=== PATIENT | female | born 2000 | race Caucasian/White ===

== ENCOUNTER 2022-09-06 21:45 | Emergency (ER) | payer MEDICAID, SELFPAY ==
--- NOTE | ~2022-09-06 | XR_ITS ---
EXAMINATION: XR WRIST, RIGHT XR HAND, RIGHT CLINICAL INFORMATION: Punched wall with pain and hand/wrist COMPARISON: None available. TECHNIQUE: 4 views including the right hand and wrist obtained FINDINGS: RIGHT WRIST: The bones and soft tissues are normal. No fracture. Alignment is anatomic. Joint spaces are maintained. No erosions or soft tissue calcifications. RIGHT HAND: There is a comminuted slightly impacted fracture of the base of the fifth metacarpal extending to the carpometacarpal joint space. Minimal dorsal displacement of the distal fragment without significant angulation. No other acute bony abnormality. XR/XR hand wrist RT IMPRESSION: Comminuted slightly impacted fracture of the base of the fifth metacarpal extending to the carpometacarpal joint space.
[2022-09-06 21:52] VITALS: BP 136/82; PULSE 85; RESP 18; TEMP 36.4; O2SAT 98; BMI 31.8
--- NOTE | 2022-09-07 00:08 | ED_ITS ---
HPI - Extremity Problem General Chief complaint: Extremity Injury, Upper Stated complaint: broken right hand? Time Seen by Provider: 09/06/22 23:42 Source: patient Mode of arrival: ambulatory Limitations: no limitations History of Present Illness HPI Narrative: Patient is a 22-year-old female who presents emergency department for evaluation of right hand injury. She is right-hand dominant. Prior to arrival she had punched a wall and is having pain to the hand along the 5th metacarpal. Pain is made worse with active range of motion to the fingers and wrist. Denies any numbness or tingling. Denies any prior injury to this hand. Related Data Allergies Allergy/AdvReac Type Severity Reaction Status Date / Time No Known Allergies Allergy Verified 09/06/22 23:45 Review of Systems Review of Systems: Yes all other systems are reviewed and are negative [facility] Past Medical History Attestation statement: The following information was validated with the patient. Source: old records reviewed Social History Social History Advance Directives: No Advance Directives Information Provided: Yes Physical Exam Vital Signs: Vital Signs: Last Vital Signs Temp 97.6 F 09/06/22 21:52 Pulse 85 09/06/22 21:52 Resp 18 09/06/22 21:52 BP 136/82 09/06/22 21:52 Pulse Ox 98 09/06/22 21:52 O2 Del Method Room Air 09/06/22 21:52 BMI result Body Mass Index 31.8 Appearance: Alert.?Oriented to person, place and time. No acute distress.?Normal affect. Neck: Normal inspection.? Neck supple.?? CVS: Heart sounds normal. Normal heart rate and rhythm.? Pulses normal.?? Respiratory: No respiratory distress.? Lung sounds clear to auscultation bilaterally?? Skin: Skin warm and dry.? Normal skin color Extremities: Localized swelling at the base of the 5th metacarpal without obvious deformity. Neurovascularly intact distally Neuro: Moves all extremities spontaneously. Sensation intact bilaterally. No focal neuro deficits. Ambulates with normal steady gait. Medical Decision Making Medical Decision Making MDM Narrative: Patient is a 22-year-old fxpor-[id number]-[id number] female presenting to emergency department for evaluation of traumatic right hand pain. Reviewed XR imaging obtained from initial triage which is consistent with a comminuted fracture at the base of the 5th metacarpal consistent with physical examination. Extremities neurovascularly intact distally. She was placed in an ulnar gutter splint, and remained neurovascularly intact distally after application. We reviewed precautions with splint, acetaminophen/ibuprofen for pain, rest, ice, elevation, outpatient follow-up with Orthopedics. Reviewed worrisome signs and symptoms that would warrant re-evaluation in the emergency department. All questions answered. Stable for discharge. Differential Diagnosis Differential Diagnoses: The differential diagnosis associated with the present ation includes (Fracture, dislocation, contusion) Independent Interpretation I performed an independent interpretation of an: Plain X-Ray (I have personally interpreted XR imaging and agree with radiologist impression) Radiology Impression Discussion of test interpretation with radiology: I have reviewed the radiologist's reading. Radiologist Impression: XR/XR hand wrist RT IMPRESSION: Comminuted slightly impacted fracture of the base of the fifth metacarpal extending to the carpometacarpal joint space. Prescription Management I considered prescription management with: Pain Medication Discharge Plan Discharge Clinical Impression: Closed fracture of fifth metacarpal bone Qualifiers: Encounter type: initial encounter Metacarpal location: base Laterality: right Patient Disposition: Home, Self-Care Instructions: Hand Fracture (ED) Additional Instructions: You have been placed in a splint, this cannot get wet. It must remain in place at all times until you follow-up with the phone specialist. Please call their office first thing tomorrow morning to arrange for a follow-up visit. You can take ibuprofen 200 mg, 3 tablets (600mg) every 6-8 hours as needed for pain, in addition to Tylenol 500 mg, 2 tablets (1,000mg) every 4-6 hours as needed for pain, but not to exceed 3 doses daily (3,000mg).? Please return back to emergency department any new or worsening symptoms or concerns. Referrals: Donna Alonzo MD [Physician] - Stand Alone Forms: Work/School Release Interventions: ED Discharge Assessment Last Done: 09/07/22 00:37 Discharge Date/Time: 09/07/22 00:37
--- NOTE | 2022-09-07 00:18 | MHC.EDTECH ---
This tech applied a ulnar gutter splint to RT arm,per Javon POLITICAL RESEARCH SCIENTIST. Patient tolerated procedure well. and provider checked for placement. RN aware
== END 2022-09-07 00:37 | disposition home or self-care (01) ==
PROVIDERS: Emergency Provider Internal Medicine
DX: S62.316A Displaced fracture of base of fifth metacarpal bone, right hand, initial encounter for closed fracture (principal); W22.09XA Striking against other stationary object, initial encounter; Y93.89 Activity, other specified; Y92.9 Unspecified place or not applicable; Y99.9 Unspecified external cause status
CPT/HCPCS: 29125; 73110; 73130; 99282; 99284

== ENCOUNTER 2022-09-15 08:29 | Outpatient (REF) | payer MEDICAID, SELFPAY ==
--- NOTE | ~2022-09-15 | XR_ITS ---
EXAMINATION: XR HAND, RIGHT CLINICAL INFORMATION: Pain in right hand. Radiopaque marker placed by technologist to indicate area of concern indicated by patient at ulnar aspect of 5th metacarpal phalangeal joint. COMPARISON: None available. TECHNIQUE: 4 views of the right hand. FINDINGS: Radiopaque marker placed by technologist to indicate area of concern indicated by patient at ulnar aspect of 5th metacarpal phalangeal joint. There is a displaced, comminuted fracture at the base of the 5th metacarpal which extends to the proximal intra-articular surface. Soft tissue swelling is present. Moderate degenerative changes 1st carpometacarpal, 1st metacarpophalangeal and 5th proximal interphalangeal with joint space narrowing and hypertrophic change. XR/XR hand RT min 3V IMPRESSION: 1. Comminuted, intra-articular, mildly displaced fracture at the base of the 5th metacarpal. 2. This study was presented today 09/20/2022 at 5:55 AM for interpretation. PSA staff will provide results to referring provider at this time. Please communicate results to referring clinician and document this communication. Thank you.
== END 2022-09-15 08:30 | disposition home or self-care (01) ==
LOC: HO.HOSX 08:29
PROVIDERS: Visit Provider Physician Assistant
DX: S62.306A Unspecified fracture of fifth metacarpal bone, right hand, initial encounter for closed fracture (principal)
CPT/HCPCS: 73130; 99202

== ENCOUNTER 2022-09-15 08:29 | Outpatient (AMB) | payer MEDICAID, SELFPAY ==
[2022-09-15 08:32] VITALS: BMI 31.8
--- NOTE | 2022-09-15 08:32 | A.OFFVIS_ITS ---
Intake Vital Signs 09/15/22 08:32 Height 5 ft 4 in Weight 185 lb BMI 31.8 Handedness Right Intake Visit Reasons: FC= Closed fracture of RT fifth metacarpal bone Intake Note: Mitchel is a 22 year old female who presents today for a fracture care appointment for her right 5th metacarpal, DOI 09/06/22. Patient reports she had punched a wall and is having pain to the hand along the 5th metacarpal. Having numbness on the dorsal and volar aspect of the hands. Allergies No Known Allergies Allergy (Verified 09/06/22 23:45) HPI FC= Closed fracture of RT fifth metacarpal bone HPI Details 22-year-old female who presents to the office today for right 5th metacarpal injury s/p punching a wall, 09/06/22. She states she has pain in her 5th metacarpal which radiates to her right hand. She also c/o numbness in the dorsal and volar aspect of her hand. She was seen in the ED, xrays obtained and she was referred to our office for ortho eval. PENDING SALE TO [facility] Social History (Updated 09/15/22 @ 08:39 by Bhargav Navarro) Alcohol intake: current Patient Tobacco Use Status: Never used Tobacco Current occupational status: student Current occupation: right hand dominant Review of Systems Const All systems reviewed & are unremarkable except as noted in HPI and below Physical Exam Vital Signs: BMI result Body Mass Index 31.8 Const General: cooperative, healthy appearing, comfortable, no acute distress, well developed and alert Orientation/consciousness: patient oriented x3 HEENT Head: Yes normal to inspection, Yes normocephalic and Yes atraumatic Eyes General: appearance normal, both eyes and all related structures Neck Neck: Yes normal visual inspection and Yes no lymphadenopathy Resp Effort & Inspection: normal respiratory effort and able to speak in complete sentences Cardio Rate: regular rate Peripheral pulses: Peripheral pulses 2+ throughout GI Inspection: Yes normal to inspection Palpation (GI): Soft to palpation Skin General skin exam: no rashes or lesions noted Neuro General: patient oriented x3 Extrem Other: Right hand: Normal to inspection. There is some tenderness over the neck of the 5th metacarpal. There is no scissoring or angulation of the small finger. She can fully extend and bring his hand to a closed fist. NVI Psych Appearance: grossly normal Mental Status: mental status grossly normal Office Procedures Casting/Splints [id number] Splint Application Procedure code (CPT) selection complete Fracture Care Fracture Billing Code: Fracture Billing Code Results Reviewed Results Reviewed: X-rays of the right hand obtained in the office today show comminuted slightly impacted fracture at the base of 5th metacarpal with intraarticular extension. Assessment & Plan Assessment & Plan (1) Fracture of fifth metacarpal bone of right hand: Code(s): S62.306A - Unspecified fracture of fifth metacarpal bone, right hand, initial encounter for closed fracture Plan I discussed the case with Dr. Alonzo. I discussed the extent of the injury to the patient and options available. Given the extent of the fracture pattern and high risk of further displacement, it is recommended that we surgically fix this to help with stability and restoring anatomy. I explained to the patient the procedure in detail along with the risks, benefits and alternatives. Risks including but not limited to infection, wound breakdown, stiffness, ongoing pain, nonunion or malunion, and possible complications with hardware. She does understand all this and would like to proceed with closed versus open reduction internal fixation of the right 5th metacarp[address] with Dr. Alonzo. She will be booked accordingly. Orders: Orders XR hand RT min 3V Today M79.641 - Pain in right hand Patient Instructions: Scribed for Monroe Naqvi PA-C, by Bertin June medical transcriptionist, on 09/15/2022 at 8:30 AM EST. IMonroe PA-C, have personally reviewed and agree with the information entered by the scribe. Coding Level of Care Code New Pt Level 4 (48564) Diagnoses Fracture of fifth metacarpal bone of right hand S62.306A CPT Codes Splint - CPT: 50855-[id number] Splint Application ([id number]) Fracture Care - Fracture Billing Code: Fracture Billing Code ([id number])
== END 2022-09-15 09:33 | disposition home or self-care (01) ==
PROVIDERS: Visit Provider Physician Assistant
DX: S62.316A Displaced fracture of base of fifth metacarpal bone, right hand, initial encounter for closed fracture (principal)
CPT/HCPCS: 99204

== ENCOUNTER 2022-09-16 07:52 | Day surgery (SDC) | payer MEDICAID, SELFPAY ==
--- NOTE | 2022-09-15 12:18 | HO.ANESPROP2 ---
HPI - Anesthesia Eval Consult details Narrative: 22yo F for Right fifth metacarpal Closed Reduction Perc Pinning vs ORIF PMFSH Active Problems Active Problems: All Active Problems (Updated 09/15/22 @ 09:35 by Bertin June) Fracture of fifth metacarpal bone of right hand (Acute) Social History Social History (Updated 09/15/22 @ 08:39 by Bhargav Navarro) Alcohol intake: current Patient Tobacco Use Status: Never used Tobacco Current occupational status: student Current occupation: right hand dominant Meds Allergies Allergy/AdvReac Type Severity Reaction Status Date / Time No Known Allergies Allergy Verified 09/06/22 23:45 Exam Exam Date and Time: September 15, 2022 1218 Assessment and Plan Assessment Anesthesia Assessment: Chart Reviewed
--- NOTE | ~2022-09-16 | FL_ITS ---
EXAMINATION: XR FLUOROSCOPY WITH IMAGES CLINICAL INFORMATION: Fifth metacarpal CRPP versus ORIF-right. COMPARISON: None available. TECHNIQUE: Fluoroscopy Supervised By: Dr. Donna Alonzo. Fluoroscopy Time: 18.24 seconds. Cumulative Dose: 0.5076 mGy. DAP: 0.0307 Gycm2. Images: 5. FINDINGS: There are 5 digital images obtained revealing a solitary pin traversing the entire length of fifth metacarpal stabilizing the proximal fifth metacarpal fracture in alignment. FL/FL guidance in OR IMPRESSION: Intraoperative fluoroscopy was provided to referring physician. There is solitary pin stabilizing comminuted fracture proximal fifth metacarpal.
[2022-09-16 08:47] VITALS: BP 114/73; PULSE 71; RESP 15; TEMP 36.8; O2SAT 99; BMI 32.3
[2022-09-16] MEDS: Lactated Ringers 1,000 ML 100 ML IVCONT (08:52)
--- NOTE | 2022-09-16 09:47 | P.CONAN_ITS ---
[facility] Active Problems Active Problems: All Active Problems (Updated 09/16/22 @ 08:44 by Carlie Valdovinos RN) Fracture of fifth metacarpal bone of right hand (Acute) Past Medical History Medical History Anxiety Borderline personality disorder Depression History of benign breast tumor Functional capacity: independent ambulation Family History Family history of problems with anesthesia: No Social History Social History Alcohol intake: current Patient Tobacco Use Status: Never used Tobacco Current occupational status: student Current occupation: right hand dominant Meds Allergies Allergy/AdvReac Type Severity Reaction Status Date / Time No Known Allergies Allergy Verified 09/16/22 08:44 Active Medications: Current Medications Lactated Ringer's (Lr) 1,000 mls @ 100 mls/hr IVCONT .Q10H BRNENA Last Admin: 09/16/22 08:52 Dose: 100 mls/hr Exam Exam Date and Time: September 16, 2022 0947 Height,Weight and Vital Signs: Height 5 ft 3.5 in Weight 83.915 kg Last Vital Signs Temp 98.2 F 09/16/22 08:47 Pulse 71 09/16/22 08:47 Resp 15 09/16/22 08:47 BP 114/73 09/16/22 08:47 Pulse Ox 99 09/16/22 08:47 O2 Del Method Room Air 09/16/22 08:47 Airway Mallampati Class: II TM Dist: >3cm Neck ROM: Full Heart: RRR Lungs: CTA Assessment and Plan Assessment Anesthesia Assessment: Anesthesia Plan Discussed Final Anesthetic Review Family History of Problems with Anesthesia: No ASA Class: II Final Preanesthetic Review: Meds/Allgs Chart Reviewed, Consent Obtained/Reviewed and Anes Risks/Benef Reviewed Patient Risk: Low (j) Procedure Risk: Low Anesthetic Plan Anesthetic Plan: GA Disposition: Standard PACU
[2022-09-16 09:52] LABS: UPreg QC Valid YES; Urine Pregnancy NEGATIVE (NEGATIVE)
--- NOTE | 2022-09-16 09:59 | MHC.SHP ---
Pre-Procedural Eval Section A Date of Service: 09/16/22 The patient is an INPATIENT: No Changes since office visit: No Cold of Flu in the past 2 weeks, No New Medical Problems, No Changes in Medication and No Patient answered all questions The History & Physical has been completed within 30 days and I have reviewed it.: Yes Section B Chief Complaint: Unspecified fracture of fifth metacarpal bone, rig Allergies: Allergies Allergy/AdvReac Type Severity Reaction Status Date / Time No Known Allergies Allergy Verified 09/16/22 08:44 Plan I have reviewed the history and physical and performed a pertinent physical examination on my patient. No changes have occurred unless specified. Time Spent With Patient Time: Total time managing care of this patient today ____ minutes.
--- NOTE | 2022-09-16 10:00 | W.PM.OPN ---
Operative Note Operative Note Date of Service: 09/16/22 Narrative: Operative Note Narrative: Preop diagnosis: 1. Right 5th Metacarpal intra-articular base fracture Postop diagnosis: Same Procedure: 1. right 5th Metacarpal base fracture closed reduction percutaneous pinning 2. Ulnar nerve block Surgeon: Donna Alonzo MD Anesthesia: General Anesthesia Findings: Metacarpal fracture Implants: 0.054 K-wires times 1 Tourniquet time: None EBL: Minimal Specimen: None Drains: None Complications: None Disposition: Brought to the recovery room in stable condition Plan: Follow-up in 10-14 days for a wound check, postop radiographs and for placement in a short-arm cast or splint Anticipate K-wire removal in 4 weeks based on interval bony healing Educate the patient that full fracture healing anticipated in approximately 8-12 weeks. Indications: The patient is 21 would years old with a right intra-articular 5th metacarpal base fracture sustained after punching a wall . The risks and benefits of operative treatment, including but not limited to risk of damage to blood vessels, nerves, tendons, infection, recurrence, delayed or nonunion of fracture, persistent pain or numbness, incomplete resolution of preoperative symptoms, or need for further surgery were discussed with the patient and they wished to proceed with surgery. Procedure: Once consent was obtained patient was brought back to the operating suite and placed in the operating table in a supine position. . Perioperative antibiotics and general anesthesia was administered by the anesthesia team. A tourniquet was applied to the proximal aspect of the right upper extremity and the limb was prepped and draped in a standard surgical fashion. Tourniquet was not inflated during the case. The FluoroScan was used during the case to assist with our fracture reduction and placement of all implants. A closed reduction was performed on the patient's right 5th metacarpal base fracture. I placed a single 0.062 K-wire retrograde through the head of the right 5th metacarpal extending proximally across the fracture site , across the 5th CMC joint and into the hamate. Fracture alignment was assessed for both angular and rotational malalignment. Once satisfied with our fracture reduction and implant placement, the K-wire Was bent and cut short and pin cap applied. Final fluoroscopic images were then obtained. The wounds were copiously irrigated with normal saline. An ulnar nerve block was then performed by infiltrating about the ulnar nerve at the wrist with some 1% lidocaine with epinephrine for postop pain control. A Sterile dressing and short volar splint was applied. The patient appears to have tolerated the procedure well and with no complications. All digits were well vascularized at the conclusion of the case.
[2022-09-16 11:18] VITALS: BP 123/72; PULSE 89; RESP 16; TEMP 36.2; O2SAT 95
[2022-09-16 11:23] VITALS: BP 126/66; PULSE 71; RESP 18; O2SAT 96
[2022-09-16 11:28] VITALS: BP 129/63; PULSE 73; RESP 20; O2SAT 98
[2022-09-16] MEDS: Acetaminophen 1,000 MG/100 ML PIGGYBACK 400 MG IV (11:31)
[2022-09-16 11:33] VITALS: BP 130/63; PULSE 95; RESP 20; TEMP 36.1; O2SAT 99
[2022-09-16 11:47] VITALS: BP 133/67; PULSE 81; RESP 20; O2SAT 99
== END 2022-09-16 12:32 | disposition home or self-care (01) ==
PROVIDERS: Nurse Practitioner; Visit Provider Orthopaedic Surgery
PROC: (CPT 26615; principal; 2022-09-16 09:30)
DX: S62.316A Displaced fracture of base of fifth metacarpal bone, right hand, initial encounter for closed fracture (principal); W22.09XA Striking against other stationary object, initial encounter; Y93.9 Activity, unspecified; Y92.9 Unspecified place or not applicable; Y99.9 Unspecified external cause status
CPT/HCPCS: 26608; 81025; J0131; J0690; J1100; J2250; J2405; J2795; J3010

== ENCOUNTER → 2022-09-16 07:52 | Outpatient (BNV) | payer MEDICAID, SELFPAY | PROVIDERS: Visit Provider Orthopaedic Surgery | DX: S62.316A Displaced fracture of base of fifth metacarpal bone, right hand, initial encounter for closed fracture (principal) | CPT/HCPCS: 26608 ==

== ENCOUNTER 2022-09-29 07:36 | Outpatient (REF) | payer MEDICAID, SELFPAY ==
--- NOTE | ~2022-09-29 | XR_ITS ---
EXAMINATION: XR HAND, RIGHT CLINICAL INFORMATION: Pain in right hand COMPARISON: 09/15/2022 TECHNIQUE: PA, lateral, and oblique views of the right hand. FINDINGS: A single percutaneous wire is identified across the fifth metacarpal bone extending into the hamate with immobilization of the intra-articular fracture at the base of the fifth metacarpal bone in anatomic alignment. The fracture remains visible. Early signs of healing at the fracture margin noted. The bones of the hand are otherwise normal without additional findings seen. XR/XR hand RT min 3V IMPRESSION: Fifth metacarpal fracture remains visible with early signs of healing. Anatomic alignment status post K wire placement.
== END 2022-09-29 07:37 | disposition home or self-care (01) ==
LOC: HO.HOSX 07:36
PROVIDERS: Visit Provider Orthopaedic Surgery
DX: S62.306D Unspecified fracture of fifth metacarpal bone, right hand, subsequent encounter for fracture with routine healing (principal)
CPT/HCPCS: 73130

== ENCOUNTER 2022-09-29 13:35 | Outpatient (AMB) | payer MEDICAID, SELFPAY ==
--- NOTE | 2022-09-29 14:25 | A.OFFVIS_ITS ---
Intake Intake Visit Reasons: PO CRPP vs. ORIF RT 5th 09/16/22AR Intake Note: Mitchel 22 yr old female presents today P/O right 5th digit ORIF from DOS 09/16/22. States she has no pain, numbness or tingling. Dressing removed in office and xrays updated as well. Allergies No Known Allergies Allergy (Verified 09/29/22 14:27) HPI PO CRPP vs. ORIF RT 5th 09/16/22AR HPI Details Mitchel is a 22 year old right hand dominant woman who presents S/P right 5th Metacarpal intra-articular base fracture CRPP 09/16/22. She says she is doing well and denies any pain. She attends a [employer] for schooling, and is off on medical leave. [facility] Medical History Anxiety Borderline personality disorder Depression History of benign breast tumor Social History Alcohol intake: current Patient Tobacco Use Status: Never used Tobacco Current occupational status: student Current occupation: right hand dominant Review of Systems Const All systems reviewed & are unremarkable except as noted in HPI and below Physical Exam Const General: no acute distress and alert Orientation/consciousness: patient oriented x3 Neuro General: patient oriented x3 Extrem Other: The patient was alert oriented and in no acute distress The pin-site is clean and dry with no erythema drainage or evidence of in fection. Sutures removed and Steri-Strips applied Mild tenderness at the fracture site Swelling & ecchymosis has mostly resolved Sensation is intact Cap refill is brisk Radiographs: 3 views of the right hand, with attention to the small finger, were taken and viewed by me today in clinic. They show a 5th metacarpal base fracture with satisfactory fracture alignment and position of single K-wire. Psych Appearance: grossly normal Affect: normal affect Attitude: cooperative Assessment & Plan Assessment & Plan (1) Fracture of fifth metacarpal bone of right hand: Code(s): S62.306A - Unspecified fracture of fifth metacarpal bone, right hand, initial encounter for closed fracture Plan Assessment & Plan: 1. Right 5th metacarpal base fracture, S/P CRPP DOS: 09/16/22 The patient appears to be doing well post-operatively I educated her about the post-operative course I discussed activity modifications, she is to lift nothing heavier than a cellphone for the next 4 weeks She is to limit or avoid any heavy impact activities or activities prone to falling for the next 4 weeks She should avoid any underwater activities at this time She was placed in a finger spica cast for the next 2 weeks She was given a note for school/[employer] to remain out for the next 3 weeks. 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 I anticipate she can return to [employer] for culinary school ~1 week after K- wire removal, she will have a 2 lb weight limit for ~2 weeks after her K-wire removal She will follow up in 2 weeks with a PA, with X-rays 3V R hand, attn SF OOP Anticipate removal of her K-wire at her next appointment Scribed for Donna Alonzo MD by Jaxon Lindsey, medical imaging technologist, on 09/29/22 at 2:55 PM, EST. Orders: Orders XR hand RT min 3V Today M79.641 - Pain in right hand Coding Level of Care Code Global (07268) Diagnoses Fracture of fifth metacarpal bone of right hand S62.306A
== END 2022-09-29 15:32 | disposition home or self-care (01) ==
PROVIDERS: Visit Provider Orthopaedic Surgery
DX: S62.306A Unspecified fracture of fifth metacarpal bone, right hand, initial encounter for closed fracture (principal)
CPT/HCPCS: 99024

== ENCOUNTER 2022-10-11 12:37 | Outpatient (REF) | payer MEDICAID, SELFPAY ==
--- NOTE | ~2022-10-11 | XR_ITS ---
EXAMINATION: XR HAND, RIGHT CLINICAL INFORMATION: Pain. COMPARISON: X-ray right hand 09/29/2022. TECHNIQUE: PA, lateral, and oblique views of the right hand. FINDINGS: Redemonstration of a single percutaneous wire across the fifth metacarpal bone extending into the hamate. No evidence of hardware fracture or complication. The fracture line at the base of the fifth metatarsal is less distinct suggesting interval osseous bridging. No significant callus formation. New punctate radiodensities in the soft tissues adjacent to the proximal aspect of the wire at the level of the metacarpophalangeal joint. XR/XR hand RT min 3V IMPRESSION: 1. Healing fracture at the base of the fifth metatarsal bone. 2. New punctate radiodensities in the soft tissues adjacent to the proximal aspect of the wire at the level of the metacarpophalangeal joint that could represent foreign bodies. Correlate with physical examination. The report will be called to the ordering clinician by a [facility] Physician Special Day Class Teacher.
== END 2022-10-11 12:38 | disposition home or self-care (01) ==
LOC: HO.HOSX 12:37
PROVIDERS: Visit Provider Physician Assistant
DX: S62.306D Unspecified fracture of fifth metacarpal bone, right hand, subsequent encounter for fracture with routine healing (principal)
CPT/HCPCS: 73130

== ENCOUNTER 2022-10-11 13:56 | Outpatient (AMB) | payer MEDICAID, SELFPAY ==
--- NOTE | 2022-10-11 14:07 | MHC.OFFVIS ---
Intake Intake Visit Reasons: ORIF RT 5th 09/16/22AR Intake Note: Daysialee 22 yr old female presents today P/O right 5th digit ORIF from [facility] 09/16/22. Patient reports she is doing well, states no pain, discomfort, numbness or tingling. Allergies No Known Allergies Allergy (Verified 10/11/22 14:38) HPI ORIF RT 5th 09/16/22AR HPI Details 22-year-old female who returns to the office today for post-op right 5th digit ORIF, 09/16/[address] Alonzo. She states she has no pain, discomfort, numbness or tingling in her finger and is doing well overall. She has no concerns today. [facility] Medical History Anxiety Borderline personality disorder Depression History of benign breast tumor Social History Alcohol intake: current Patient Tobacco Use Status: Never used Tobacco Current occupational status: student Current occupation: right hand dominant Review of Systems Const All systems reviewed & are unremarkable except as noted in HPI and below Physical Exam Extrem Other: Right hand: Normal to inspection. Skin is intact. sensation intact. Results Reviewed Results Reviewed: X-rays of the right hand obtained in the office today show fracture at the base of 5th metacarpal with intact pinn Assessment & Plan Assessment & Plan (1) Fracture of fifth metacarpal bone of right hand: Code(s): S62.306A - Unspecified fracture of fifth metacarpal bone, right hand, initial encounter for closed fracture Plan Pin was removed in office today and she was placed in an off the shelf thermal molded wrist splint to be worn at all times like a cast-she can remove for hygiene only. she is to lift nothing heavier than a cellphone for the next 2 weeks She is to limit or avoid any heavy impact activities or activities prone to falling for the next 2 weeks She should avoid any underwater activities at this time She was placed in a velcro wrist splint for the next 2 weeks She was given a note for school/job [employer] to remain out for the next week. 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 I anticipate she can return to [employer] for culinary school ~1 week after K-wire removal, she will have a 2 lb weight limit for ~2 weeks after her K-wire removal She will follow up in [address] Alonzo , with X-rays 3V R hand, attn SF Orders: Orders XR hand RT min 3V 10/11/22 M79.641 - Pain in right hand Patient Instructions: Scribed for Monroe Naqvi PA-C, by Bertin June medical imaging director, on 10/11/2022 at 1:45 PM EST. I, Monroe Naqvi PA-C, have personally reviewed and agree with the information entered by the scribe. Coding Level of Care Code Global (83170) Diagnoses Fracture of fifth metacarpal bone of right hand S62.306A
== END 2022-10-11 15:00 | disposition home or self-care (01) ==
PROVIDERS: Visit Provider Physician Assistant
DX: S62.306D Unspecified fracture of fifth metacarpal bone, right hand, subsequent encounter for fracture with routine healing (principal); Z48.89 Encounter for other specified surgical aftercare
CPT/HCPCS: 99024

== ENCOUNTER 2022-11-03 07:14 | Outpatient (REF) | payer MEDICAID, SELFPAY ==
--- NOTE | ~2022-11-03 | XR_ITS ---
EXAMINATION: XR HAND, RIGHT CLINICAL INFORMATION: Pain. COMPARISON: Radiograph dated 10/11/2022. TECHNIQUE: PA, lateral, and oblique views of the right hand. FINDINGS: Bony alignment and mineralization are normal. A healing fracture is redemonstrated of the fifth metacarpal base, with stable alignment and the residual fracture line. No new fracture or dislocation is seen. 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 No bone erosion is seen. There is no focal soft tissue swelling, gas or foreign body. XR/XR hand RT min 3V IMPRESSION: 1. No acute fracture or dislocation is seen. 2. There is stable alignment of a healing fracture of the fifth metacarpal base. 3. 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 4. No focal bone erosion is seen.
== END 2022-11-03 07:15 | disposition home or self-care (01) ==
LOC: HO.HOSX 07:14
PROVIDERS: Visit Provider Orthopaedic Surgery
DX: S62.306D Unspecified fracture of fifth metacarpal bone, right hand, subsequent encounter for fracture with routine healing (principal)
CPT/HCPCS: 73130

== ENCOUNTER 2022-11-03 12:48 | Outpatient (AMB) | payer MEDICAID, SELFPAY ==
--- NOTE | 2022-11-03 12:49 | MHC.OFFVIS ---
Intake Intake Visit Reasons: p.o Rt hand sm finger CRPP 09/16/22 Intake Note: Mitchel is a 22 year old right hand dominant female who presents today for a post operative appointment s/p Right Small Finger CRPP 09/16/22. Pin was removed 10/11/22 by Monroe and patient was fit for a thermal molded brace. Today she reports she has no pain, is doing well with her ROM and denies numbness or tingling. Xrays updated in office. Allergies No Known Allergies Allergy (Verified 11/03/22 13:17) HPI p.o Rt hand sm finger CRPP 09/16/22 HPI Details Mitchel is a 22 year old right hand dominant woman who presents S/P right 5th Metacarpal intra-articular base fracture CRPP 09/16/22. She says she is doing well and denies any pain. She has been wearing her thermal-molded brace and working on gentle ROM exercises. She attends a [employer] for schooling, and is off on medical leave. [facility] Medical History Anxiety Borderline personality disorder Depression History of benign breast tumor Social History Alcohol intake: current Patient Tobacco Use Status: Never used Tobacco Current occupational status: student Current occupation: right hand dominant Physical Exam Const General: no acute distress and alert Orientation/consciousness: patient oriented x3 Neuro General: patient oriented x3 Extrem Other: The patient was alert oriented and in no acute distress The pin-site is well-healed with no erythema drainage or evidence of infection. Completely non-tender at the fracture site She can make a tight fist with good strength and no pain Sensation is intact Cap refill is brisk Radiographs: 3 views of the right hand, with attention to the small finger, were taken and viewed by me today in clinic. They show a 5th metacarpal base fracture with satisfactory fracture alignment and good evidence of interval bony healing. Psych Appearance: grossly normal Affect: normal affect Attitude: cooperative Assessment & Plan Assessment & Plan (1) Fracture of fifth metacarpal bone of right hand: Code(s): S62.306A - Unspecified fracture of fifth metacarpal bone, right hand, initial encounter for closed fracture Plan Assessment & Plan: 1. Right 5th metacarpal base fracture, S/P CRPP DOS: 09/16/22 K-wire removed: 10/11/22 The patient appears to be doing well post-operatively and is happy with the results of her surgery I discussed activity modifications, she is to begin using her hand for daily activities She will discontinue her splint at this time She will continue to work on ROM exercises at home She was given a note for school/job [employer] to return to full duty without restrictions. 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 She can follow up prn Scribed for Donna Alonzo MD by Jaxon Lindsey, medical oncology physician, on 11/03/22 at 1:25 PM, EST. Orders: Orders XR hand RT min 3V Today M79.641 - Pain in right hand Coding Level of Care Code Global (22677) Diagnoses Fracture of fifth metacarpal bone of right hand S62.306A
== END 2022-11-03 13:30 | disposition home or self-care (01) ==
PROVIDERS: Visit Provider Orthopaedic Surgery
DX: S62.306A Unspecified fracture of fifth metacarpal bone, right hand, initial encounter for closed fracture (principal)
CPT/HCPCS: 99024

== ENCOUNTER 2023-06-14 15:11 | Emergency (ER) | payer MEDICAID, SELFPAY ==
[2023-06-14 15:14] VITALS: BP 109/63; PULSE 81; RESP 16; TEMP 36.7; O2SAT 98; BMI 33.9
--- NOTE | 2023-06-14 15:15 | ED.GENADULT ---
HPI - General Adult General Chief complaint: Ear Problems Stated complaint: Hearing loss both ears/painful Time Seen by Provider: 06/14/23 15:22 Source: patient, RN notes reviewed and old records reviewed Mode of arrival: ambulatory Limitations: no limitations History of Present Illness HPI narrative: 23-year-old female presents for evaluation of fevers, cough, congestion. Her symptoms started 3 days ago. She states that today she noticed that her hearing sided muffled in both of her ears She notes clear discharge out of both of her ears Denies any shortness of breath, chest pain. She states that her boyfriend has similar symptoms. They were tested for flu and COVID earlier today and was negative Related Data Previous Rx's ?Medication ?Instructions ?Recorded acetaminophen 650 mg 650 mg PO Q8H PRN fever or pain 06/14/23 tablet,extended release #20 tabs amoxicillin 875 mg-potassium 1 tab PO Q12H #20 tabs 06/14/23 clavulanate 125 mg tablet ibuprofen 600 mg tablet 600 mg PO Q6H PRN fever or pain 06/14/23 #20 tabs Allergies Allergy/AdvReac Type Severity Reaction Status Date / Time No Known Allergies Allergy Verified 06/14/23 15:18 Review of Systems Constitutional: Constitutional: Reports body ache(s), Reports chills, Reports fever(s), Reports headache(s) and Reports malaise Eyes: Eyes: Denies blurry vision ENT: Reports ear discharge, Reports otalgia and Reports headache(s) Cardiovascular: Cardiovascular: Denies chest pain and Denies dyspnea Respiratory: Respiratory: Denies cough and Denies dyspnea Gastrointestinal: Gastrointestinal: Denies abdominal pain Musculoskeletal: Musculoskeletal: Denies back pain Neurologic: Reports headache(s) [facility] Past Medical History Medical History Anxiety Borderline personality disorder Depression History of benign breast tumor Social History Social History Alcohol intake: current Patient Tobacco Use Status: Never used Tobacco Current occupational status: student Current occupation: right hand dominant Physical Exam ED Vital Signs: Vital Signs - 24 hr 06/14/23 15:14 Temperature 98.0 F Pulse Rate 81 Respiratory Rate 16 Blood Pressure 109/63 Pulse Oximetry 98 Oxygen Delivery Method Room Air BMI result Body Mass Index 33.9 Const General: healthy appearing, comfortable, no acute distress, alert and awake Nutritional Appearance: well nourished Orientation/consciousness: patient oriented x3 HENMT Other: Bilateral middle ear effusions. Tympanic membranes are erythematous, bulging but intact. External ear canals clear bilaterally. No otorrhea Head: Yes normocephalic and Yes atraumatic Throat: Yes posterior oropharynx normal Eyes Eyelids: Yes eyelids normal Conjunctivae: conjunctivae normal Sclerae: sclerae normal Corneas: corneas normal Pupils: Equal, round and reactive pupils present EOM: EOMs intact bilaterally Neck Neck: Yes full ROM Resp Effort & Inspection: normal respiratory effort, able to speak in complete sentences, no audible wheezes and not labored Auscultation: clear to auscultation bilaterally Skin General skin exam: elasticity normal Neuro General: patient oriented x3 Cranial nerves: Yes Equal, round and reactive pupils present and Yes Bilaterally intact EOM present Cognition (Neuro): normal cognition Extrem Other: Moving all extremities well without any obvious deformities Medical Decision Making Medical Decision Making [facility] Narrative: Patient has bilateral ear pain with muffled hearing. Clinically she has otitis media bilaterally. We will treat with Augmentin b.i.d. times 10 days, antipyretics and analgesia. She was recommended to use [id number] decongestant. Differential Diagnosis Differential Diagnoses: The differential diagnosis associated with the presentation includes Otitis media Otitis externa Mastitis Upper respiratory infection Viral syndrome Discharge Plan Discharge Clinical Impression: Bilateral otitis media with effusion Patient Disposition: Home, Self-Care Instructions: Ear Infection (ED) Additional Instructions: You have an ear infection of both ears Use Augmentin twice daily for 10 days Use ibuprofen/Tylenol for fevers, pain I recommend that he use an [id number] decongestant such as Sudafed or Afrin nasal spray Follow-up with your primary doctor, return for new or worsening symptoms Prescriptions: New amoxicillin-pot clavulanate 875-125 mg tablet 1 tab PO Q12H Qty: 20 0RF ibuprofen 600 mg tablet 600 mg PO Q6H PRN (Reason: fever or pain) Qty: 20 0RF acetaminophen 650 mg tablet extended release 650 mg PO Q8H PRN (Reason: fever or pain) Qty: 20 0RF Print Language: Anguill[place]
== END 2023-06-14 15:27 | disposition home or self-care (01) ==
LOC: HO.ED 15:26
PROVIDERS: Emergency Provider Emergency Medicine
DX: H65.93 Unspecified nonsuppurative otitis media, bilateral (principal)
CPT/HCPCS: 99281